=== PATIENT | female | born 1965 | race Caucasian/White ===

== ENCOUNTER 2017-03-18 11:30 | Outpatient (CLI) | payer MEDICAID | END 2017-03-18 11:45 | disposition home or self-care (01) | LOC: RT.N 11:30 | PROVIDERS: ATTEND Nurse Practitioner Gerontology | DX: R00.2 Palpitations (principal) | CPT/HCPCS: 93005 ==

== ENCOUNTER 2017-03-22 21:05 | Outpatient (CLI) | payer MEDICAID ==
--- NOTE | 2017-03-23 11:57 | Ultrasound Report ---
COMPLETE ABDOMINAL ULTRASOUND: 03/22/2017 CLINICAL INDICATION: Pain. COMPARISON: 03/21/2008 TECHNIQUE: Real-time scanning was performed with international sales representative static images obtained. FINDINGS: The liver measures 16.8 cm. A tiny hemangioma is noted at the dome of the liver. No intr ahepatic biliary dilatation is present. The common bile duct measures 2 mm. The gallbladder demonst rates a small focus of sludge or a tiny polyp, measuring 3 mm. No shadowing calculus is seen. The p ancreas is normal. The right kidney measures 10.5 cm, and the left kidney measures 11.4 cm. No hydr onephrosis, focal renal lesion, or definite shadowing calculus is seen. The spleen measures 10.4 cm, and appears unremarkable. The abdominal aorta is normal in caliber. The inferior vena cava is unre markable. No free fluid is present. IMPRESSION: SMALL POLYP OR FOCUS OF ADHERENT TUMEFACTIVE SLUDGE IN THE GALLBLADDER. INCIDENTAL HEPA TIC HEMANGIOMA. JOB #: [id number] EXT JOB #:[id number]
== END 2017-03-22 21:06 | disposition home or self-care (01) ==
LOC: DI 21:05
PROVIDERS: ATTEND Nurse Practitioner Gerontology
DX: R10.9 Unspecified abdominal pain (principal)
CPT/HCPCS: 76700

== ENCOUNTER 2017-03-26 09:11 | Outpatient (CLI) | payer MEDICAID ==
[2017-03-26 09:29] LABS: BASOPHILS # (AUTO) 0.1 10^3/uL (0.0-0.1); BASOPHILS % (AUTO) 0.7 %; EOSINOPHILS # (AUTO) 0.1 10^3/uL (0.0-0.7); EOSINOPHILS % (AUTO) 1.1 %; HCT - HEMATOCRIT 45.5 % (37.0-47.0); HGB - HEMOGLOBIN 15.3 g/dL (12.0-16.0); LYMPHOCYTES # (AUTO) 1.4 10^3/uL (1.5-3.5); LYMPHOCYTES % (AUTO) 15.4 %; MEAN CORPUSCULAR HEMOGLOBIN 30.8 pg (27.0-31.0); MEAN CORPUSCULAR HGB CONC 33.6 g/dL (32.0-36.0); MEAN CORPUSCULAR VOLUME 91.7 fL (81.0-99.0); MEAN PLATELET VOLUME 8.2 fL (7.9-10.8); MONOCYTES # (AUTO) 0.6 10^3/uL (0.0-1.0); MONOCYTES % (AUTO) 6.9 %; NEUTROPHILS # (AUTO) 6.7 10^3/uL (1.5-6.6); NEUTROPHILS % (AUTO) 75.9 %; NUCLEATED RED BLOOD CELLS AUTO 0.1 /100WBC; RED BLOOD COUNT 4.96 10^6/uL (4.20-5.40); RED CELL DISTRIBUTION WIDTH 13.2 % (12.0-15.0); UNCORRECTED WHITE BLOOD COUNT 8.8 x10^3/uL; WHITE BLOOD COUNT 8.8 x10^3/uL (4.8-10.8)
[2017-03-26 09:41] LABS: ALBUMIN/GLOBULIN RATIO 1.3 (1.0-2.2); BILIRUBIN,TOTAL 0.6 mg/dL (0.2-1.0); CALCIUM 9.5 mg/dL (8.5-10.3); CREATININE 0.7 mg/dL (0.4-1.0); TOTAL PROTEIN 7.7 g/dL (6.7-8.2)
== END 2017-03-26 09:12 | disposition home or self-care (01) ==
LOC: LAB 09:11
PROVIDERS: ATTEND Surgery
DX: R10.9 Unspecified abdominal pain (principal)
CPT/HCPCS: 36415; 80053; 83690; 85025

== ENCOUNTER 2017-04-28 09:09 | Outpatient (CLI) | payer MEDICAID ==
[2017-04-28] MEDS ORDERED: BARIUM SULFATE 135 ML BOTTLE PO ONE (11:01)
[2017-04-28] MEDS ORDERED: BARIUM SULFATE 176 GM BOTTLE PO ONE (11:01)
[2017-04-28] MEDS ORDERED: SIMETHICONE/SOD BICARB/CIT AC 1 EACH PACKET PO ONE (11:01)
--- NOTE | 2017-04-28 13:44 | XRAY Report ---
UPPER GI WITH CONTRAST AND SMALL BOWEL FOLLOW THROUGH: 04/28/2017 CLINICAL HISTORY: A 52-year-old female, post Miesha fundoplication in 2007. Recurrent epigastric pain and symptoms of reflux. Constipation. TECHNIQUE: Standard double contrast upper GI/small bowel follow through. Fluoro time was 2 minutes 54 seconds. FINDINGS: The swallowing mechanism is initiated normally. The column of barium flows readily through the esophagus into the stomach without delay. Deformity of the distal esophagus is consistent with prior Miesha fundoplication. There is mild luminal narrowing but no bolivar stricture. Trace spontaneous gastroesophageal reflux occurs during the examination but clears readily with tertiary peristalsis. The mucosal pattern of the stomach and duodenum are grossly normal. No fold thickening, ulcerations, or mass lesions. Transit time through the small bowel is approximately 30 minutes. The mucosal surface of the small bowel is wunremarkable; there is no thickening, nodularity or stricturing. IMPRESSION: 1. INTACT MIESHA FUNDOPLICATION. MILD LUMINAL NARROWING OF THE DISTAL ESOPHAGUS WITHOUT BOLIVAR STRICTURING. 2. TRACE SPONTANEOUS GASTROESOPHAGEAL REFLUX. 3. NORMAL SMALL BOWEL TRANSIT TIME. NO MUCOSAL ABNORMALITIES. JOB #: [id number] EXT JOB #: [id number] MAXIMILIANO
== END 2017-04-28 09:10 | disposition home or self-care (01) ==
LOC: DI 09:09
PROVIDERS: ATTEND Surgery
DX: K21.9 Gastro-esophageal reflux disease without esophagitis (principal)
CPT/HCPCS: 74249; A9270

== ENCOUNTER 2017-05-04 08:50 | Outpatient (CLI) | payer MEDICAID ==
[2017-05-04] MEDS ORDERED: SINCALIDE IV ONE (12:22)
[2017-05-04] MEDS ORDERED: SODIUM CHLORIDE 0.9% IV ONE (12:22)
--- NOTE | 2017-05-04 16:51 | Nuclear Medicine Report ---
EXAM: HEPATOBILIARY SCAN WITH CCK/KINEVAC ADMINISTRATION EXAM DATE: 05/04/2017 12:17 PM. CLINICAL HISTORY: GALLBLADDER DISORDER. COMPARISON: Ultrasound exam 03/22/2017. TECHNIQUE: Following the intravenous administration of 5 mCi of Tc99m Mebrofenin, a hepatobiliary sca n was done centered on the liver and gallbladder in multiple sequential images and projections. Following the intravenous administration of 0.75 mcg of CCK/ Kinevac over the course of approximately 60 minutes, dynamic imaging was done and the gallbladder ejection fraction was calculated. FINDINGS: Normal extraction of tracer from the blood pool indicating normal hepatocellular function. The liver size and shape is grossly within normal limits. There is activity visualized within the bile ducts and gallbladder within the first hour. Small bowel activity not visualized until after CCK was administered. With CCK administration, the gallbladder demonstrates an effective contraction. The gallbladder eject ion fraction is calculated to be 75%, well above the lower limit of normal of 38% for a 60-minute inj ection. A small amount of enterogastric bile reflux is observed. IMPRESSION: 1. Patent cystic duct. 2. Patent common bile duct. 3. Negative for acute or chronic cholecystitis. 4. Positive for small amount of enterogastric bile reflux. 5. Normal gallbladder ejection fraction of 75%. [facility] Referring Provider Line: [phone] SITE ID: [id number]
== END 2017-05-04 08:51 | disposition home or self-care (01) ==
LOC: DI 08:50
PROVIDERS: ATTEND Surgery
DX: K82.9 Disease of gallbladder, unspecified (principal)
CPT/HCPCS: 78227; A9537

== ENCOUNTER 2017-12-15 08:19 | Outpatient (CLI) | payer MEDICAID ==
[2017-12-15 13:07] LABS: BASOPHILS % (AUTO) 0.6 %; EOSINOPHILS # (AUTO) 0.2 10^3/uL (0.0-0.7); EOSINOPHILS % (AUTO) 3.2 %; HGB - HEMOGLOBIN 14.5 g/dL (12.0-16.0); LYMPHOCYTES # (AUTO) 1.6 10^3/uL (1.5-3.5); LYMPHOCYTES % (AUTO) 25.9 %; MEAN CORPUSCULAR VOLUME 91.1 fL (81.0-99.0); MONOCYTES # (AUTO) 0.5 10^3/uL (0.0-1.0); MONOCYTES % (AUTO) 8.1 %; NEUTROPHILS % (AUTO) 62.2 %; PLT - PLATELET COUNT 304 10^3/uL (130-450); RED BLOOD COUNT 4.83 10^6/uL (4.20-5.40); RED CELL DISTRIBUTION WIDTH 13.4 % (12.0-15.0); WHITE BLOOD COUNT 6.4 x10^3/uL (4.8-10.8)
[2017-12-15 13:17] LABS: ALBUMIN 4.2 g/dL (3.2-5.5); ALBUMIN/GLOBULIN RATIO 1.4 (1.0-2.2); ALKALINE PHOSPHATASE 83 IU/L (42-121); ALT ALANINE AMINOTRANSFERASE 30 IU/L (10-60); AST ASPARTATE AMINOTRANSFERASE 23 IU/L (10-42); BILIRUBIN,TOTAL 0.5 mg/dL (0.2-1.0); BUN - BLOOD UREA NITROGEN 11 mg/dL (6-20); CARBON DIOXIDE - CO2 26 mmol/L (21-32); CHLORIDE 106 mmol/L (101-111); CHOL/HDL RATIO 3.8 (<4.4); CHOLESTEROL 211 mg/dL; CREATININE 0.7 mg/dL (0.4-1.0); GFR - MDRD 87 (>89); GLUCOSE 102 mg/dL (70-100); HDL CHOLESTEROL 56 mg/dL; LDL CHOLESTEROL,CALCULATED 130 mg/dL; LDL/HDL RATIO 2.3 (<4.4); SODIUM 139 mmol/L (135-145); TOTAL PROTEIN 7.3 g/dL (6.7-8.2); VLDL CHOLESTEROL 25 mg/dL
== END 2017-12-15 08:20 | disposition home or self-care (01) ==
LOC: LAB.N 08:19
PROVIDERS: ATTEND Nurse Practitioner Gerontology
DX: Z13.9 Encounter for screening, unspecified (principal)
CPT/HCPCS: 36415; 80053; 80061; 83721; 84443; 85025

== ENCOUNTER 2018-01-25 13:04 | Outpatient (CLI) | payer MEDICAID ==
--- NOTE | 2018-01-25 17:34 | Mammography Report ---
DIGITAL DIAGNOSTIC BILATERAL MAMMOGRAM: 01/25/2018 CLINICAL INDICATION: Left breast pain. COMPARISON: 11/26/2014, 05/08/2013, 05/04/2012, 01/15/2010, 01/07/2010. TECHNIQUE: Bilateral CC and MLO views, left true lateral view. The patient reports that the pain has resolved, so no markers were placed. FINDINGS: The breasts demonstrate heterogeneously dense fibroglandular parenchyma bilaterally. Coarse, typically benign calcifications are present. No suspicious masses, clustered microcalcifications, or regions of architectural distortion are identified. IMPRESSION: BENIGN FINDINGS. RECOMMENDATION: Routine annual screening unless otherwise clinically indicated. BI-RADS category 2 benign STANDARD QUALIFYING STATEMENTS 1. This examination was reviewed with the aid of Computed-Aided Detection (CAD). 2. A negative or benign imaging report should not delay biopsy if clinically suspicious findings are present. Consider surgical consultation if warranted. More than 5% of cancers are not identified by imaging. 3. Dense breasts may obscure an underlying neoplasm. TD: 01/25/2018 15:17
== END 2018-01-25 13:05 | disposition home or self-care (01) ==
LOC: DI 13:04
PROVIDERS: ATTEND Nurse Practitioner Gerontology
DX: N64.4 Mastodynia (principal)
CPT/HCPCS: 77066

== ENCOUNTER → 2018-03-08 | Outpatient (CLI) | payer MEDICAID | LOC: RT.N 11:54 | PROVIDERS: ATTEND Nurse Practitioner | DX: M79.602 Pain in left arm (principal); N64.4 Mastodynia | CPT/HCPCS: 93005 ==

== ENCOUNTER 2020-06-04 08:00 | Outpatient (CLI) | payer OTHER ==
[2020-06-04 18:23] LABS: BASOPHILS % (AUTO) 0.4 %; EOSINOPHILS # (AUTO) 0.1 10^3/uL (0.0-0.7); EOSINOPHILS % (AUTO) 1.7 %; HGB - HEMOGLOBIN 14.4 g/dL (12.0-16.0); LYMPHOCYTES % (AUTO) 23.5 %; MEAN CORPUSCULAR HEMOGLOBIN 30.3 pg (27.0-31.0); MEAN CORPUSCULAR VOLUME 94.7 fL (81.0-99.0); MEAN PLATELET VOLUME 10.9 fL (7.9-10.8); MONOCYTES # (AUTO) 0.8 10^3/uL (0.0-1.0); NEUTROPHILS # (AUTO) 5.4 10^3/uL (1.5-6.6); PLT - PLATELET COUNT 347 10^3/uL (130-450); RED BLOOD COUNT 4.75 10^6/uL (4.20-5.40); RED CELL DISTRIBUTION WIDTH 13.1 % (12.0-15.0); WHITE BLOOD COUNT 8.3 x10^3/uL (4.8-10.8)
[2020-06-04 19:01] LABS: ALBUMIN 4.4 g/dL (3.2-5.5); ALBUMIN/GLOBULIN RATIO 1.5 (1.0-2.2); BILIRUBIN,TOTAL 0.6 mg/dL (0.2-1.0); CALCIUM 9.4 mg/dL (8.5-10.3); CREATININE 0.7 mg/dL (0.4-1.0); TOTAL PROTEIN 7.3 g/dL (6.7-8.2)
== END 2020-06-04 23:59 | disposition home or self-care (01) ==
LOC: LAB.WCP 08:00
PROVIDERS: ATTEND Family Medicine
DX: K11.8 Other diseases of salivary glands (principal)
CPT/HCPCS: 36415; 80053; 85025; 86735

== ENCOUNTER 2020-06-05 16:17 | Outpatient (CLI) | payer OTHER ==
[2020-06-05] MEDS ORDERED: IOVERSOL 320 100 ML VIAL IVP ONE (16:48)
--- NOTE | 2020-06-05 18:01 | CT Report ---
PROCEDURE: MAXILLOFACIAL W INDICATIONS: PAROTID GLAND SWELLING CONTRAST: IV CONTRAST: Optiray 320 ml: 100 PO CONTRAST: *NO PO CONTRAST TECHNIQUE: After the administration of intravenous contrast, 3.0 mm axial sections acquired from the mid-neck to the frontal sinuses, with coronal reformatting. For radiation dose reduction, the following was use d: automated exposure control, adjustment of mA and/or kV according to patient size. COMPARISON: None. FINDINGS: Image quality: Excellent. Soft tissues: In this patient with this given history, scrutiny is given to the parotid glands. The parotid glands demonstrate a normal, symmetric appearance. No suspicious intraparotid masses are seen . Subcentimeter likely lymph nodes can be seen within each parotid. No parotid duct swelling can be s een. Semitubular glands are likewise within normal limits, with the left subareolar gland slightly larger than the right. No edema, masses, or fluid collections. No enlarged lymph nodes. Vascular: Visualized vascular structures appear patent throughout. Bony vascular foramina and canal s appear normal. Bones: Facial bones appear intact, without fractures, erosions, or destruction. Visualized portions of the skull base and auditory canals also appear normal. Sinuses: Paranasal sinuses are aerated without fluid levels, mucosal thickening, or mucoceles. Mast oid air cells are aerated. IMPRESSION: No significant parotid abnormality is seen. Reviewed by: Glen Chang MD on 06/05/2020 5:00 PM JONATHON Approved by: Glen Chang MD on 06/05/2020 5:00 PM JONATHON Station ID: [id number]
== END 2020-06-05 16:18 | disposition home or self-care (01) ==
LOC: DI 16:17
PROVIDERS: ATTEND Family Medicine
DX: K11.8 Other diseases of salivary glands (principal)
CPT/HCPCS: 70487; Q9967

== ENCOUNTER 2021-11-06 15:50 | Outpatient (CLI) | payer OTHER ==
--- NOTE | 2021-11-06 16:48 | Ultrasound Report ---
PROCEDURE: Chest INDICATIONS: SOFT TISSUE MASS TECHNIQUE: Sonographic images of the upper back at the area of concern were obtained. COMPARISON: None. FINDINGS: There is a 3.7 x 0.9 x 3.5 cm focus of relatively increased echogenicity within the subcutaneous fat of the left upper back. Margins are well-circumscribed. IMPRESSION: Focus of increased echogenicity as described above suggestive of lipoma. Reviewed by: Diamond Rodriguez MD on 11/06/2021 4:47 PM PST Approved by: Diamond Rodriguez MD on 11/06/2021 4:47 PM [facility] Station ID: [id number]
== END 2021-11-06 15:51 | disposition home or self-care (01) ==
LOC: DI 15:50
PROVIDERS: ATTEND Physician Assistant
DX: R93.89 Abnormal findings on diagnostic imaging of other specified body structures (principal)

== ENCOUNTER 2021-11-06 16:16 | Outpatient (CLI) | payer OTHER ==
--- NOTE | 2021-11-06 17:46 | XRAY Report ---
PROCEDURE: Chest 2 View X-Ray INDICATIONS: WHEEZING TECHNIQUE: 2 view(s) of the chest. COMPARISON: None. FINDINGS: Surgical changes and devices: Status post lower cervical spine ACDF. Lungs and pleura: No pleural effusions or pneumothorax. Lungs are clear. Mediastinum: Mediastinal contours are normal. Heart size is normal. Bones and chest wall: No suspicious bony abnormalities. Soft tissues appear unremarkable. IMPRESSION: No acute cardiopulmonary disease process. Reviewed by: Roopa Doss MD, PhD on 11/06/2021 5:44 PM PST Approved by: Roopa Doss MD, PhD on 11/06/2021 5:44 PM PST Station ID: [id number]
== END 2021-11-06 16:17 | disposition home or self-care (01) ==
LOC: DI 16:16
PROVIDERS: ATTEND Physician Assistant
DX: R06.2 Wheezing (principal); R93.89 Abnormal findings on diagnostic imaging of other specified body structures

== ENCOUNTER 2023-08-22 13:03 | Emergency (ER) | payer BC, OTHER ==
[2023-08-22 13:29] VITALS: O2SAT 98
[2023-08-22] MEDS ORDERED: KETOROLAC 30 MG/ML VIAL IVP STA (13:35)
--- NOTE | 2023-08-22 13:47 | ED Physician Documentation ---
History of Present Illness - Stated complaint Stated Complaint: LT SIDE FACE/HEAD SWELLING - Chief complaint Chief Complaint: Heent - History obtained from History obtained from: Patient - History of Present Illness Timing: Today Pain level max: 8 Pain level now: 8 - Additonal information Additional information: Patient is a 58-year-old female who presents for urgency department stating that she noted pain and swelling to the left side of her face and ear that started yesterday. She states she felt a "pop" while chewing. Worse with palpation and movement. Nothing makes it better. No fevers. No chills. Did have a viral upper respiratory illness about 3 weeks ago. She does use marijuana regularly. Otherwise she states she does not smoke cigarettes. No redness or drainage. Review of Systems Constitutional: denies: Fever, Chills, Myalgias Nose: denies: Rhinorrhea / runny nose, Congestion GI: denies: Vomiting, Diarrhea : denies: Dysuria Skin: denies: Rash Musculoskeletal: denies: Neck pain, Back pain Neurologic: denies: Focal weakness, Numbness, Headache PD PAST MEDICAL HISTORY - Past Medical History Respiratory: Asthma Psych: Depression, Anxiety, Panic attacks Musculoskeletal: Chronic back pain - Past Surgical History Past Surgical History: Yes /[employer]: Hysterectomy - Present Medications Home Medications: Ambulatory Orders Medication Instructions Recorded Confirmed clindamycin HCL [Cleocin HCl] 300 mg PO Q6H #40 cap 08/22/23 - Allergies Allergies/Adverse Reactions: Allergies Allergy/AdvReac Type Severity Reaction Status Date / Time penicillin G Allergy Severe Respiratory Verified 02/27/13 17:38 morphine Allergy Unknown Nausea Verified 02/27/13 17:37 - Social History Does the pt smoke?: No Smoking Status: Never smoker Does the pt drink ETOH?: Yes PD ED PE NORMAL - Vitals Vital signs reviewed: Yes - General General: Alert and oriented X 3, No acute distress - HEENT HEENT: PERRL, Ears normal, Moist mucous membranes, Pharynx benign, Other (There is swelling and tenderness there is swelling and tenderness that obscures the angle of the left mandible. There is no overlying skin changes. No redness. No intraoral drainage. The swelling extends down underneath the left ear.) - Neck Neck: Supple, no meningeal sign, No adenopathy - Cardiac Cardiac: RRR, Strong equal pulses - Respiratory Respiratory: No respiratory distress, Clear bilaterally - Derm Derm: Warm and dry, No rash - Neuro Neuro: Alert and oriented X 3 - Psych Psych: Normal mood, Normal affect Results - Vitals Vitals: Vital Signs - 24 hr 08/22/23 08/22/23 13:19 16:59 Temperature 36.9 C Heart Rate 77 68 Respiratory 16 16 Rate Blood Pressure 134/81 H 137/73 H O2 Saturation 98 98 - Labs Labs: Laboratory Tests 08/22/23 08/22/23 13:41 13:41 WBC 8.1 RBC 4.74 Hgb 14.3 Hct 44.3 MCV 93.5 MCH 30.2 MCHC 32.3 RDW 12.5 Plt Count 355 MPV 9.7 Neut # (Auto) 5.0 Lymph # (Auto) 2.1 [place] # (Auto) 0.7 Eos # (Auto) 0.2 Baso # (Auto) 0.1 Absolute Nucleated RBC 0.00 Nucleated RBC % 0.0 Sodium 138 Potassium 4.2 Chloride 106 Carbon Dioxide 28 Anion Gap 4.0 L BUN 14 Creatinine 0.7 Estimated GFR (MDRD) 85 L Glucose 102 Calcium 9.4 Total Bilirubin 0.3 AST 15 ALT 21 Alkaline Phosphatase 90 Total Protein 6.9 Albumin 4.2 Globulin 2.7 Albumin/Globulin Ratio 1.6 - Rads (name of study) soft tissue neck CT Relevant Findings:: Final report received, See rad report PD Medical Decision Making - ED course Complexity details: reviewed results, re-evaluated patient, considered differential, d/w patient, d/w family ED course: 58-year-old female with unilateral parotid swelling on examination. There is no purulence inside the mouth. There is tenderness but no overlying skin erythema. No fevers. No chills. Possible obstructive sialoadenitis? We will place on oral antibiotics as well as have her suck on sour candies to increase her saliva production.CT soft tissue neck does not show any abscess. It does confirm the unilateral parotid swelling. Patient is very well-appearing, nontoxic. No evidence of sepsis. Patient counseled regarding signs and symptoms for which I believe and urgent re-evaluation would be necessary. Patient with good understanding of and agreement to plan and is comfortable going home at this time This document was made in part using voice recognition software. While efforts are made to proofread this document, sound alike and grammatical errors may occur. Departure - Departure Disposition: Home, Self Care Clinical Impression: Parotitis, acute Condition: Good Instructions: ED Sublingual Gland Swelling [facility] Follow-Up: your,doctor in 1 week [Other] [facility] [Provider Group] - Within 1 week Prescriptions: clindamycin HCL [Cleocin HCl] 300 mg PO Q6H #40 cap Comments: Your prescription was to [facility] in [place]. Your CAT scan does show unilateral swelling of your parotid gland. As we discussed this can be due to several things, this could be due to a salivary gland obstruction by a salivary gland stone. Could also be due to an early bacterial infection although you do not have a fever or elevated white count. There is also no pus visible on the inside of your mouth. It could also be a viral inflammation. You can use Motrin or Tylenol as needed for pain. Sour candies often help with pain and swelling as well. Forms: PCP List Discharge Date/Time: 08/22/23 17:00
[2023-08-22 13:51] LABS: BASOPHILS # (AUTO) 0.1 10^3/uL (0.0-0.1); BASOPHILS % (AUTO) 0.6 %; EOSINOPHILS # (AUTO) 0.2 10^3/uL (0.0-0.7); EOSINOPHILS % (AUTO) 1.8 %; HCT - HEMATOCRIT 44.3 % (37.0-47.0); HGB - HEMOGLOBIN 14.3 g/dL (12.0-16.0); LYMPHOCYTES # (AUTO) 2.1 10^3/uL (1.5-3.5); LYMPHOCYTES % (AUTO) 26.2 %; MEAN CORPUSCULAR HEMOGLOBIN 30.2 pg (27.0-31.0); MEAN CORPUSCULAR HGB CONC 32.3 g/dL (32.0-36.0); MEAN CORPUSCULAR VOLUME 93.5 fL (81.0-99.0); MEAN PLATELET VOLUME 9.7 fL (7.9-10.8); MONOCYTES # (AUTO) 0.7 10^3/uL (0.0-1.0); MONOCYTES % (AUTO) 9.1 %; NEUTROPHILS % (AUTO) 61.9 %; PLT - PLATELET COUNT 355 10^3/uL (130-450); RED BLOOD COUNT 4.74 10^6/uL (4.20-5.40); RED CELL DISTRIBUTION WIDTH 12.5 % (12.0-15.0); WHITE BLOOD COUNT 8.1 x10^3/uL (4.8-10.8)
[2023-08-22 14:06] LABS: ALBUMIN 4.2 g/dL (3.2-5.5); ALBUMIN/GLOBULIN RATIO 1.6 (1.0-2.2); BILIRUBIN,TOTAL 0.3 mg/dL (0.2-1.0); CALCIUM 9.4 mg/dL (8.5-10.3); CREATININE 0.7 mg/dL (0.6-1.3); POTASSIUM 4.2 mmol/L (3.5-4.5); TOTAL PROTEIN 6.9 g/dL (6.4-8.9)
--- NOTE | 2023-08-22 16:19 | CT Report ---
PROCEDURE: SOFT TISSUE NECK W INDICATIONS: L sided neck/facial swelling CONTRAST: omni 300 100ml TECHNIQUE: After the administration of intravenous contrast, 3.0 mm axial sections acquired from the sella to th e aortic arch. Additional oblique axial 3.0 mm sections acquired through the pharynx. 3 mm thick co anil reformats were generated. For radiation dose reduction, the following was used: automated exp osure control, adjustment of mA and/or kV according to patient size. COMPARISON: None. FINDINGS: Image quality: Excellent. Lymph nodes: No enlarged lymph nodes seen throughout the neck. Vessels: Visualized vasculature appears patent. Neck spaces: The oropharynx, nasopharynx, and pharynx demonstrate no mucosal lesions. The vocal cor ds, false vocal cords, pyriform sinuses, epiglottis, vallecula, and tongue base all appear normal. E xtramucosal spaces appear unremarkable. Glands: There is asymmetry of the parotid glands with hyper enhancement enlargement of the left comp ared to the right. No stones, abscess, or duct dilation identified The submandibular glands appear no rmal. The thyroid is normal in size and there are no incidental findings. Miscellaneous: Visualized brain and orbits appear normal. Lung apices appear clear. Superficial so ft tissues appear normal. Bones: No suspicious bony lesions. Visualized sinuses and mastoids appear unremarkable. Anterior f ixation of the lower cervical spine. IMPRESSION: Asymmetry of the parotid glands with enlargement and hyperemia of the left glands Reviewed by: Poncho Hutchinson MD on 08/22/2023 3:18 PM [place] Approved by: Poncho Hutchinson MD on 08/22/2023 3:18 PM [place] Station ID: [id number]
[2023-08-22 17:05] VITALS: BP 137/73
[2023-08-22] MEDS ORDERED: iohexoL-300 100 ML VIAL IVP ONE (18:13)
== END 2023-08-22 17:00 | disposition home or self-care (01) ==
LOC: ED 13:03
DX: K11.21 Acute sialoadenitis (principal)
CPT/HCPCS: 36415; 80053; 85025; 96374; 99283